=== PATIENT | male | born 1955 | race Caucasian/White ===

== ENCOUNTER 2019-08-11 08:32 | Emergency (ER) | payer OTHER, MEDICARE ==
[~2019-08-11] VITALS: Ht 167.6 cm; Wt 79.4 kg
[~2019-08-11 08:32] MED LIST: ASPI81CH PO; ATOR40TA PO; Aspirin EC81 MG PO; Bactrim Ds Tab1 EACH PO; CARV6.25 PO; CLOP75 PO; Coreg12.5 MG PO; HYDCHL25 PO; LISI20 PO; METF500C PO; Metformin HCl850 MG PO; ZESTRIL40 MG PO
[2019-08-11 09:19] LABS: BASOPHILS ABSOLUTE AUTO 0.08 K/mm3 (0.00-0.23); BASOPHILS PERCENT AUTO 1 % (0-2); EOSINOPHILS ABSOLUTE AUTO 0.29 K/mm3 (0.00-0.68); EOSINOPHILS PERCENT AUTO 3 % (0-6); Hematocrit 44.3 % (37.0-53.0); Hemoglobin 15.1 g/dL (13.5-17.5); IMMATURE GRAN ABSOLUTE AUTO 0.04 K/mm3 (0.00-0.10); IMMATURE GRAN PERCENT AUTO 0 % (0-1); LYMPHOCYTES ABSOLUTE AUTO 2.72 K/mm3 (0.84-5.20); LYMPHOCYTES PERCENT AUTO 26 % (21-46); MONOCYTES ABSOLUTE AUTO 0.89 K/mm3 (0.16-1.47); MONOCYTES PERCENT AUTO 9 % (4-13); Mean Corpuscular HGB 32.1 pg (26.0-34.0); Mean Corpuscular HGB Conc 34.1 g/dL (31.5-36.5); Mean Corpuscular Volume 94 fL (80-100); Mean Platelet Volume 8.2 fL (9.1-12.4); NEUTROPHILS ABSOLUTE AUTO 6.46 K/mm3 (1.96-9.15); NEUTROPHILS PERCENT AUTO 62 % (41-73); Platelet Count 354 K/mm3 (150-400); RDW Coefficient Variation 11.4 % (11.7-14.2); RDW Standard Deviation 39.5 fL (35.1-46.3); Red Blood Cell Count 4.71 M/mm3 (4.30-5.90); White Blood Cell Count 10.48 K/mm3 (4.00-11.30)
[2019-08-11 09:36] LABS: Alanine Aminotransfer (ALT/SGP 36 U/L (12-78); Albumin/Globulin Ratio 0.6 (0.8-1.8); Alk Phos 116 U/L (50-136); Anion Gap 7 mmol/L (6-16); Aspartate Aminotrans (AST/SGOT 20 U/L (12-37); Bilirubin, Total 0.4 mg/dL (0.1-1.0); Blood Urea Nitrogen 12 mg/dL (8-24); Bun/Creatinine Ratio 15.4 (12.0-20.0); CO2, Blood 28 mmol/L (21-32); Chloride, Blood 101 mmol/L (98-108); Creatinine, Blood 0.78 mg/dL (0.60-1.20); Globulin, Blood 5.1 g/dL (2.2-4.0); Glomerular Filtration Rate >60 (60-); Glucose, Blood 169 mg/dL (70-99); Sodium, Blood 136 mmol/L (136-145); Total Protein, Blood 8.1 g/dL (6.4-8.2)
[2019-08-11 09:37] LABS: Troponin I <0.015 ng/mL (0.000-0.040)
[2019-08-11] MEDS ORDERED: Acetaminophen-1 EAC1 PO (10:34)
== END 2019-08-11 10:54 | disposition home or self-care (01) ==
LOC: ER 08:32
PROVIDERS: Emergency Medicine
DX: R07.89 Other chest pain (principal); I25.2 Old myocardial infarction; E11.9 Type 2 diabetes mellitus without complications; I10 Essential (primary) hypertension; Z79.899 Other long term (current) drug therapy; Z79.01 Long term (current) use of anticoagulants; Z79.84 Long term (current) use of oral hypoglycemic drugs
CPT/HCPCS: 36415; 71046; 80053; 83690; 84484; 85025; 93005; 93010; 96374; 96375; 99284-25; J1885; J2405; J3010

== ENCOUNTER 2020-11-02 21:29 | Observation (INO) | payer OTHER, MEDICARE ==
[~2020-11-02] VITALS: Ht 182.9 cm; Wt 88.2 kg
[~2020-11-02 21:29] MED LIST changes: +Acetaminophen-1 EAC1 PO
[2020-11-02 21:53] LABS: BASOPHILS ABSOLUTE AUTO 0.09 K/mm3 (0.00-0.23); BASOPHILS PERCENT AUTO 1 % (0-2); EOSINOPHILS ABSOLUTE AUTO 0.25 K/mm3 (0.00-0.68); EOSINOPHILS PERCENT AUTO 3 % (0-6); Hematocrit 51.3 % (37.0-53.0); Hemoglobin 17.8 g/dL (13.5-17.5); IMMATURE GRAN ABSOLUTE AUTO 0.03 K/mm3 (0.00-0.10); IMMATURE GRAN PERCENT AUTO 0 % (0-1); LYMPHOCYTES ABSOLUTE AUTO 2.93 K/mm3 (0.84-5.20); LYMPHOCYTES PERCENT AUTO 32 % (21-46); MONOCYTES ABSOLUTE AUTO 0.91 K/mm3 (0.16-1.47); MONOCYTES PERCENT AUTO 10 % (4-13); Mean Corpuscular HGB Conc 34.7 g/dL (31.5-36.5); Mean Corpuscular Volume 89 fL (80-100); Mean Platelet Volume 9.8 fL (9.1-12.4); NEUTROPHILS ABSOLUTE AUTO 4.83 K/mm3 (1.96-9.15); NEUTROPHILS PERCENT AUTO 53 % (41-73); Platelet Count 233 K/mm3 (150-400); RDW Coefficient Variation 12.2 % (11.7-14.2); RDW Standard Deviation 40.4 fL (35.1-46.3); Red Blood Cell Count 5.74 M/mm3 (4.30-5.90); White Blood Cell Count 9.04 K/mm3 (4.00-11.30)
[2020-11-02 22:12] LABS: Alanine Aminotransfer (ALT/SGP 17 U/L (12-78); Albumin, Blood 2.8 g/dL (3.4-5.0); Albumin/Globulin Ratio 0.5 (0.8-1.8); Alk Phos 174 U/L (50-136); Anion Gap 3 mmol/L (6-16); Aspartate Aminotrans (AST/SGOT 13 U/L (12-37); Bilirubin, Total 0.3 mg/dL (0.1-1.0); Blood Urea Nitrogen 11 mg/dL (8-24); Bun/Creatinine Ratio 11.2 (12.0-20.0); CO2, Blood 30 mmol/L (21-32); Calcium, Blood 9.3 mg/dL (8.5-10.1); Chloride, Blood 103 mmol/L (98-108); Creatinine, Blood 0.98 mg/dL (0.60-1.20); Globulin, Blood 5.2 g/dL (2.2-4.0); Glomerular Filtration Rate >60 (60-); Glucose, Blood 384 mg/dL (70-99); Potassium, Blood 4.5 mmol/L (3.5-5.5); Sodium, Blood 136 mmol/L (136-145); Troponin I 0.071 ng/mL (0.000-0.040)
[2020-11-02] MEDS ORDERED: METF500 PO (22:46)
[2020-11-02] MEDS ORDERED: DULO60 PO (22:46)
[2020-11-02] MEDS ORDERED: PREG150 PO (22:47)
[2020-11-03 06:04] LABS: BASOPHILS ABSOLUTE AUTO 0.11 K/mm3 (0.00-0.23); BASOPHILS PERCENT AUTO 1 % (0-2); EOSINOPHILS ABSOLUTE AUTO 0.36 K/mm3 (0.00-0.68); EOSINOPHILS PERCENT AUTO 4 % (0-6); Hematocrit 46.5 % (37.0-53.0); Hemoglobin 16.1 g/dL (13.5-17.5); IMMATURE GRAN ABSOLUTE AUTO 0.04 K/mm3 (0.00-0.10); IMMATURE GRAN PERCENT AUTO 0 % (0-1); LYMPHOCYTES ABSOLUTE AUTO 3.27 K/mm3 (0.84-5.20); LYMPHOCYTES PERCENT AUTO 32 % (21-46); MONOCYTES ABSOLUTE AUTO 1.17 K/mm3 (0.16-1.47); MONOCYTES PERCENT AUTO 12 % (4-13); Mean Corpuscular HGB Conc 34.6 g/dL (31.5-36.5); Mean Corpuscular Volume 89 fL (80-100); Mean Platelet Volume 10.2 fL (9.1-12.4); NEUTROPHILS PERCENT AUTO 51 % (41-73); Platelet Count 203 K/mm3 (150-400); RDW Coefficient Variation 12.2 % (11.7-14.2); RDW Standard Deviation 40.3 fL (35.1-46.3); White Blood Cell Count 10.15 K/mm3 (4.00-11.30)
[2020-11-03 06:25] LABS: CHOL/HDL RATIO 5.3; Cholesterol 164 mg/dL (50-200); HDL Cholesterol 31 mg/dL (>39); LDL/HDL RATIO 3.1; Low Density Lipoprotein Chol 97 mg/dL (0-110); Triglycerides 178 mg/dL (30-160); Very Low Density Lipoprot Chol 35 mg/dL (6-32)
[2020-11-03 06:28] LABS: Anion Gap 6 mmol/L (6-16); Blood Urea Nitrogen 11 mg/dL (8-24); Bun/Creatinine Ratio 13.5 (12.0-20.0); CO2, Blood 25 mmol/L (21-32); Calcium, Blood 8.6 mg/dL (8.5-10.1); Chloride, Blood 107 mmol/L (98-108); Creatinine, Blood 0.82 mg/dL (0.60-1.20); Glomerular Filtration Rate >60 (60-); Glucose, Blood 262 mg/dL (70-99); Potassium, Blood 4.1 mmol/L (3.5-5.5); Sodium, Blood 138 mmol/L (136-145); Troponin I 0.057 ng/mL (0.000-0.040)
--- NOTE | 2020-11-03 07:14 | NUR ---
SHIFT SUMMARY PATIENT ALERT AND ORIENTED. HAD NO COMPLAINTS OF CHEST PAIN OR SHORTNESS OF BREATH. ABLE TO SELF AMBULATE SAFELY IN HIS ROOM. HAS BEEN SLEEPING WELL SINCE ADMISSION TO THE MEDICAL UNIT. IV PATENT AND FLUSHED. BALL LIGHT WITHIN REACH. REPORT GIVEN TO ANGEL BROCK.
--- NOTE | 2020-11-03 11:16 | NUR ---
Echocardiogram performed by Ankita Del Real under my supervision.
--- NOTE | 2020-11-03 17:11 | NUR ---
SUMMARY PT SITTING UP AT THE CHAIR AT THE BEDSIDE, PT HAD A ONE DAY STRESS TEST PROTOCOL TODAY, PT INDEPENDENT IN THE ROOM, DENIES ANY CHEST PAIN T/O THE DAY, PT HOPEFUL TO BE DC'D TODAY, WAITING FOR STRESS TEST RESULTS, VSS, WILL CONT TO MONITOR
[2020-11-03] MEDS ORDERED: ASPI81CH PO (20:26)
[2020-11-03] MEDS ORDERED: ATOR20 PO (20:26)
[2020-11-03] MEDS ORDERED: Metoprolol Tart25 MG (20:27)
--- NOTE | 2020-11-03 20:46 | NUR ---
DISCHARGE NOTE: PATIENT DISCHARGED TO HOME AT 2034 AFTER RECEIVING DISCHARGE INSTRUCTIONS. PATIENT IS A OK CLIENT AND WILL NOT BE ABLE TO PROPERTY ASSESSMENT MONITOR NEW RX'S FOR LIPITOR, METOPROLOL AND ASPIRIN UNTIL FRIDAY. PATIENT BELIEVES HE STILL HAS METOPROLOL LEFT AT HOME FROM [facility] ("within a year ago") WHICH HE WILL BE TAKING OVER THE WEEKEND. PATIENT REFUSED BRUSH CLEANER ASSESSMENT WELL HEPARIN AND BOWEL CARE MEDS WHICH WERE ALL DUE AT . REFUSED WHEELCHAIR TRANSPORT DOWN TO [facility] "HE NEEDED TO WALK". PATIENT TO FOLLOW UP WITH HIS PCP AT THE OK AND OBTAIN REFERRAL TO DIRECTOR BROADCAST HE NEEDS FOLLOW UP AND DOES NOT HAVE ONE. TELE DC'D AND IV DC'D. AT TIME OF DISCHARGE
--- NOTE | 2020-11-03 22:10 | NUR ---
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
== END 2020-11-03 20:40 | disposition home or self-care (01) ==
LOC: ER 21:29 → MEDS 21:30 → ER 11-03 00:37 → MEDS 11-03 00:37
PROVIDERS: Physician Assistant; ADMIT Internal Medicine
DX: R07.9 Chest pain, unspecified (principal); I11.0 Hypertensive heart disease with heart failure; I50.22 Chronic systolic (congestive) heart failure; E11.40 Type 2 diabetes mellitus with diabetic neuropathy, unspecified; E78.5 Hyperlipidemia, unspecified; I25.10 Atherosclerotic heart disease of native coronary artery without angina pectoris; Z95.5 Presence of coronary angioplasty implant and graft; I34.0 Nonrheumatic mitral (valve) insufficiency; Z88.8 Allergy status to other drugs, medicaments and biological substances; Z79.84 Long term (current) use of oral hypoglycemic drugs; Z79.899 Other long term (current) drug therapy
CPT/HCPCS: 36415; 71046; 78452; 80048; 80053; 80061; 82947; 84484; 85025; 93005; 93010; 93017; 93306; 96372; 99285-25; A9270; A9500; G0378; J0280; J1644; J1815; J2785

== ENCOUNTER 2021-01-09 15:50 | Inpatient (IN) | payer OTHER, MEDICARE ==
[~2021-01-09] VITALS: Ht 177.8 cm; Wt 90.1 kg
[~2021-01-09 15:50] MED LIST changes: +ATOR20 PO; +DULO60 PO; +METF500 PO; +Metoprolol Tart25 MG; +PREG150 PO
[2021-01-09 16:15] LABS: BASOPHILS ABSOLUTE AUTO 0.12 K/mm3 (0.00-0.23); BASOPHILS PERCENT AUTO 1 % (0-2); EOSINOPHILS ABSOLUTE AUTO 0.28 K/mm3 (0.00-0.68); EOSINOPHILS PERCENT AUTO 2 % (0-6); Hematocrit 44.1 % (37.0-53.0); Hemoglobin 15.2 g/dL (13.5-17.5); IMMATURE GRAN PERCENT AUTO 1 % (0-1); LYMPHOCYTES ABSOLUTE AUTO 5.18 K/mm3 (0.84-5.20); LYMPHOCYTES PERCENT AUTO 37 % (21-46); MONOCYTES ABSOLUTE AUTO 1.33 K/mm3 (0.16-1.47); MONOCYTES PERCENT AUTO 10 % (4-13); Mean Corpuscular HGB 31.6 pg (26.0-34.0); Mean Corpuscular HGB Conc 34.5 g/dL (31.5-36.5); Mean Corpuscular Volume 92 fL (80-100); Mean Platelet Volume 11.1 fL (9.1-12.4); NEUTROPHILS ABSOLUTE AUTO 6.85 K/mm3 (1.96-9.15); NEUTROPHILS PERCENT AUTO 49 % (41-73); Platelet Count 246 K/mm3 (150-400); RDW Coefficient Variation 13.5 % (11.7-14.2); RDW Standard Deviation 45.3 fL (35.1-46.3); Red Blood Cell Count 4.81 M/mm3 (4.30-5.90); White Blood Cell Count 13.86 K/mm3 (4.00-11.30)
[2021-01-09 16:52] LABS: Alanine Aminotransfer (ALT/SGP 30 U/L (12-78); Albumin/Globulin Ratio 0.6 (0.8-1.8); Alk Phos 134 U/L (50-136); Anion Gap 5 mmol/L (6-16); Aspartate Aminotrans (AST/SGOT 34 U/L (12-37); Blood Urea Nitrogen 10 mg/dL (8-24); Bun/Creatinine Ratio 11.4 (12.0-20.0); CO2, Blood 24 mmol/L (21-32); Calcium, Blood 8.9 mg/dL (8.5-10.1); Chloride, Blood 109 mmol/L (98-108); Creatinine, Blood 0.88 mg/dL (0.60-1.20); Globulin, Blood 5.1 g/dL (2.2-4.0); Glomerular Filtration Rate >60 (60-); Glucose, Blood 193 mg/dL (70-99); Potassium, Blood 4.2 mmol/L (3.5-5.5); Sodium, Blood 138 mmol/L (136-145); Total Protein, Blood 8.1 g/dL (6.4-8.2); Troponin I <0.015 ng/mL (0.000-0.040)
[2021-01-09] MEDS ORDERED: IPRAT-ALBUT 0.5-3 ML NEB (18:11)
[2021-01-09] MEDS ORDERED: ALBU2.5V5 INH (18:11)
[2021-01-09] MEDS ORDERED: GLUCOPHAGE1000 M1 PO (18:12)
[2021-01-09] MEDS ORDERED: CYMBALTA60 M1 PO (18:12)
[2021-01-09] MEDS ORDERED: PREG150 PO (18:12)
[2021-01-10 04:45] LABS: BASOPHILS PERCENT AUTO 1 % (0-2); EOSINOPHILS ABSOLUTE AUTO 0.15 K/mm3 (0.00-0.68); EOSINOPHILS PERCENT AUTO 1 % (0-6); Hemoglobin 14.7 g/dL (13.5-17.5); IMMATURE GRAN ABSOLUTE AUTO 0.05 K/mm3 (0.00-0.10); IMMATURE GRAN PERCENT AUTO 1 % (0-1); LYMPHOCYTES PERCENT AUTO 24 % (21-46); MONOCYTES ABSOLUTE AUTO 0.98 K/mm3 (0.16-1.47); MONOCYTES PERCENT AUTO 9 % (4-13); Mean Corpuscular HGB 31.8 pg (26.0-34.0); Mean Corpuscular Volume 91 fL (80-100); Mean Platelet Volume 10.1 fL (9.1-12.4); NEUTROPHILS ABSOLUTE AUTO 6.64 K/mm3 (1.96-9.15); NEUTROPHILS PERCENT AUTO 64 % (41-73); Platelet Count 223 K/mm3 (150-400); RDW Coefficient Variation 13.6 % (11.7-14.2); RDW Standard Deviation 44.7 fL (35.1-46.3); Red Blood Cell Count 4.62 M/mm3 (4.30-5.90); White Blood Cell Count 10.42 K/mm3 (4.00-11.30)
[2021-01-10 05:07] LABS: Alanine Aminotransfer (ALT/SGP 30 U/L (12-78); Albumin, Blood 2.8 g/dL (3.4-5.0); Albumin/Globulin Ratio 0.6 (0.8-1.8); Alk Phos 121 U/L (50-136); Anion Gap 2 mmol/L (6-16); Aspartate Aminotrans (AST/SGOT 19 U/L (12-37); Bilirubin, Total 0.9 mg/dL (0.1-1.0); Blood Urea Nitrogen 14 mg/dL (8-24); Bun/Creatinine Ratio 14.1 (12.0-20.0); CO2, Blood 29 mmol/L (21-32); Calcium, Blood 8.8 mg/dL (8.5-10.1); Chloride, Blood 106 mmol/L (98-108); Creatinine, Blood 0.99 mg/dL (0.60-1.20); Globulin, Blood 4.5 g/dL (2.2-4.0); Glomerular Filtration Rate >60 (60-); Glucose, Blood 159 mg/dL (70-99); Potassium, Blood 3.9 mmol/L (3.5-5.5); Sodium, Blood 137 mmol/L (136-145); Total Protein, Blood 7.3 g/dL (6.4-8.2)
[2021-01-11 05:07] LABS: Albumin, Blood 2.9 g/dL (3.4-5.0); Anion Gap 5 mmol/L (6-16); Blood Urea Nitrogen 23 mg/dL (8-24); Bun/Creatinine Ratio 21.3 (12.0-20.0); CO2, Blood 29 mmol/L (21-32); Calcium, Blood 8.9 mg/dL (8.5-10.1); Chloride, Blood 103 mmol/L (98-108); Creatinine, Blood 1.08 mg/dL (0.60-1.20); Glomerular Filtration Rate >60 (60-); Glucose, Blood 207 mg/dL (70-99); Phosphorus, Blood 3.2 mg/dL (2.5-4.9); Potassium, Blood 3.9 mmol/L (3.5-5.5); Sodium, Blood 137 mmol/L (136-145)
[2021-01-11] MEDS ORDERED: ASPI81CH PO (11:21)
[2021-01-11] MEDS ORDERED: ATOR20 PO (11:22)
[2021-01-11] MEDS ORDERED: LOSA25 PO (11:24)
[2021-01-11] MEDS ORDERED: MELATONIN5 M1 PO (11:25)
[2021-01-11] MEDS ORDERED: METO25 PO (11:26)
[2021-01-11] MEDS ORDERED: Nicoderm Cq1 EAC1 TOP (11:26)
[2021-01-11] MEDS ORDERED: FURO40 PO (11:29)
== END 2021-01-11 12:46 | disposition home or self-care (01) | DRG 291 ==
LOC: ER 15:50 → MEDS 17:34
PROVIDERS: Emergency Medicine; Family Medicine; ADMIT Internal Medicine
DX: I11.0 Hypertensive heart disease with heart failure (principal); J96.01 Acute respiratory failure with hypoxia; I47.1 Supraventricular tachycardia; I50.23 Acute on chronic systolic (congestive) heart failure; I25.2 Old myocardial infarction; Z95.5 Presence of coronary angioplasty implant and graft; Z20.822 Contact with and (suspected) exposure to COVID-19; Z79.82 Long term (current) use of aspirin; Z79.84 Long term (current) use of oral hypoglycemic drugs; E11.42 Type 2 diabetes mellitus with diabetic polyneuropathy; I25.10 Atherosclerotic heart disease of native coronary artery without angina pectoris; F17.290 Nicotine dependence, other tobacco product, uncomplicated
CPT/HCPCS: 36415; 71045; 80053; 80069; 82947; 83605; 83735; 83880; 84132; 84145; 84443; 84484; 85025; 87040; 93005; 93010; 94640; 94760; 96365; 96375; 99285-25; A9270; J0456; J0696; J1650; J1815; J1940; J3475; J7050

== ENCOUNTER 2021-04-09 21:23 | Observation (INO) | payer OTHER ==
[~2021-04-09] VITALS: Ht 182.9 cm; Wt 88.0 kg
[~2021-04-09 21:23] MED LIST changes: +ALBU2.5V5 INH; +CYMBALTA60 M1 PO; +FURO40 PO; +GLUCOPHAGE1000 M1 PO; +IPRAT-ALBUT 0.5-3 ML NEB; +LOSA25 PO; +MELATONIN5 M1 PO; +METO25 PO; +Nicoderm Cq1 EAC1 TOP
[2021-04-09 21:47] LABS: BASOPHILS ABSOLUTE AUTO 0.14 K/mm3 (0.00-0.23); BASOPHILS PERCENT AUTO 1 % (0-2); EOSINOPHILS ABSOLUTE AUTO 0.33 K/mm3 (0.00-0.68); EOSINOPHILS PERCENT AUTO 2 % (0-6); Hematocrit 45.2 % (37.0-53.0); Hemoglobin 15.7 g/dL (13.5-17.5); IMMATURE GRAN ABSOLUTE AUTO 0.06 K/mm3 (0.00-0.10); IMMATURE GRAN PERCENT AUTO 0 % (0-1); LYMPHOCYTES ABSOLUTE AUTO 3.51 K/mm3 (0.84-5.20); LYMPHOCYTES PERCENT AUTO 26 % (21-46); MONOCYTES ABSOLUTE AUTO 1.18 K/mm3 (0.16-1.47); MONOCYTES PERCENT AUTO 9 % (4-13); Mean Corpuscular HGB 31.6 pg (26.0-34.0); Mean Corpuscular HGB Conc 34.7 g/dL (31.5-36.5); Mean Corpuscular Volume 91 fL (80-100); Mean Platelet Volume 10.3 fL (9.1-12.4); NEUTROPHILS ABSOLUTE AUTO 8.32 K/mm3 (1.96-9.15); NEUTROPHILS PERCENT AUTO 62 % (41-73); Platelet Count 225 K/mm3 (150-400); RDW Coefficient Variation 12.8 % (11.7-14.2); RDW Standard Deviation 42.4 fL (35.1-46.3); Red Blood Cell Count 4.97 M/mm3 (4.30-5.90); White Blood Cell Count 13.54 K/mm3 (4.00-11.30)
[2021-04-09 22:08] LABS: Alanine Aminotransfer (ALT/SGP 27 U/L (12-78); Albumin, Blood 3.1 g/dL (3.4-5.0); Albumin/Globulin Ratio 0.6 (0.8-1.8); Alk Phos 147 U/L (50-136); Anion Gap 5 mmol/L (6-16); Aspartate Aminotrans (AST/SGOT 24 U/L (12-37); Bilirubin, Total 0.6 mg/dL (0.1-1.0); Blood Urea Nitrogen 14 mg/dL (8-24); CO2, Blood 27 mmol/L (21-32); Calcium, Blood 8.6 mg/dL (8.5-10.1); Chloride, Blood 105 mmol/L (98-108); Globulin, Blood 5.1 g/dL (2.2-4.0); Glomerular Filtration Rate >60 (60-); Glucose, Blood 169 mg/dL (70-99); Magnesium, Blood 1.5 mg/dL (1.6-2.4); Potassium, Blood 4.3 mmol/L (3.5-5.5); Sodium, Blood 137 mmol/L (136-145); Total Protein, Blood 8.2 g/dL (6.4-8.2); Troponin I 0.065 ng/mL (0.000-0.040)
[2021-04-10 05:46] LABS: BASOPHILS PERCENT AUTO 1 % (0-2); EOSINOPHILS ABSOLUTE AUTO 0.22 K/mm3 (0.00-0.68); EOSINOPHILS PERCENT AUTO 2 % (0-6); Hematocrit 39.8 % (37.0-53.0); Hemoglobin 13.8 g/dL (13.5-17.5); IMMATURE GRAN ABSOLUTE AUTO 0.05 K/mm3 (0.00-0.10); IMMATURE GRAN PERCENT AUTO 1 % (0-1); LYMPHOCYTES ABSOLUTE AUTO 2.93 K/mm3 (0.84-5.20); LYMPHOCYTES PERCENT AUTO 29 % (21-46); MONOCYTES ABSOLUTE AUTO 0.95 K/mm3 (0.16-1.47); MONOCYTES PERCENT AUTO 9 % (4-13); Mean Corpuscular HGB 31.3 pg (26.0-34.0); Mean Corpuscular HGB Conc 34.7 g/dL (31.5-36.5); Mean Corpuscular Volume 90 fL (80-100); Mean Platelet Volume 11.9 fL (9.1-12.4); NEUTROPHILS ABSOLUTE AUTO 5.86 K/mm3 (1.96-9.15); NEUTROPHILS PERCENT AUTO 58 % (41-73); Platelet Count 193 K/mm3 (150-400); RDW Coefficient Variation 12.7 % (11.7-14.2); RDW Standard Deviation 42.2 fL (35.1-46.3); Red Blood Cell Count 4.41 M/mm3 (4.30-5.90); White Blood Cell Count 10.11 K/mm3 (4.00-11.30)
[2021-04-10 06:10] LABS: CPK Creatine Kinase 175 U/L (39-308)
[2021-04-10 06:12] LABS: Alanine Aminotransfer (ALT/SGP 20 U/L (12-78); Albumin, Blood 2.5 g/dL (3.4-5.0); Albumin/Globulin Ratio 0.6 (0.8-1.8); Alk Phos 120 U/L (50-136); Anion Gap 4 mmol/L (6-16); Aspartate Aminotrans (AST/SGOT 29 U/L (12-37); Bilirubin, Total 0.8 mg/dL (0.1-1.0); Blood Urea Nitrogen 13 mg/dL (8-24); Bun/Creatinine Ratio 14.8 (12.0-20.0); CO2, Blood 26 mmol/L (21-32); Calcium, Blood 8.8 mg/dL (8.5-10.1); Chloride, Blood 108 mmol/L (98-108); Creatinine, Blood 0.88 mg/dL (0.60-1.20); Globulin, Blood 4.4 g/dL (2.2-4.0); Glomerular Filtration Rate >60 (60-); Glucose, Blood 125 mg/dL (70-99); Potassium, Blood 4.3 mmol/L (3.5-5.5); Sodium, Blood 138 mmol/L (136-145); Total Protein, Blood 6.9 g/dL (6.4-8.2)
[2021-04-10] MEDS ORDERED: FURO40 PO (12:05)
[2021-04-10] MEDS ORDERED: POTA10T PO (12:05)
== END 2021-04-10 12:22 | disposition home or self-care (01) ==
LOC: ER 21:23 → ERHOLD 21:24
PROVIDERS: Physician Assistant; ADMIT Internal Medicine
DX: I11.0 Hypertensive heart disease with heart failure (principal); I50.43 Acute on chronic combined systolic (congestive) and diastolic (congestive) heart failure; I25.2 Old myocardial infarction; E11.40 Type 2 diabetes mellitus with diabetic neuropathy, unspecified; E78.5 Hyperlipidemia, unspecified; I25.10 Atherosclerotic heart disease of native coronary artery without angina pectoris; F17.290 Nicotine dependence, other tobacco product, uncomplicated; Z79.84 Long term (current) use of oral hypoglycemic drugs; Z79.82 Long term (current) use of aspirin; Z95.5 Presence of coronary angioplasty implant and graft; I34.0 Nonrheumatic mitral (valve) insufficiency; Z87.01 Personal history of pneumonia (recurrent); Z87.09 Personal history of other diseases of the respiratory system
CPT/HCPCS: 36415; 71045; 80053; 82550; 83735; 83880; 84484; 85025; 85379; 93005; 93010; 96365; 96367; 96372; 96375; 96376; 99285-25; A9270; G0378; J0696; J1650; J1940; J3475

== ENCOUNTER 2021-04-22 20:32 | Emergency (ER) | payer OTHER ==
[~2021-04-22] VITALS: Ht 182.9 cm; Wt 84.4 kg
[~2021-04-22 20:32] MED LIST changes: +POTA10T PO
[2021-04-22 21:27] LABS: BASOPHILS ABSOLUTE AUTO 0.09 K/mm3 (0.00-0.23); BASOPHILS PERCENT AUTO 1 % (0-2); EOSINOPHILS ABSOLUTE AUTO 0.24 K/mm3 (0.00-0.68); EOSINOPHILS PERCENT AUTO 3 % (0-6); Hematocrit 39.8 % (37.0-53.0); Hemoglobin 13.9 g/dL (13.5-17.5); IMMATURE GRAN ABSOLUTE AUTO 0.05 K/mm3 (0.00-0.10); IMMATURE GRAN PERCENT AUTO 1 % (0-1); LYMPHOCYTES PERCENT AUTO 31 % (21-46); MONOCYTES ABSOLUTE AUTO 0.87 K/mm3 (0.16-1.47); MONOCYTES PERCENT AUTO 10 % (4-13); Mean Corpuscular HGB 31.5 pg (26.0-34.0); Mean Corpuscular HGB Conc 34.9 g/dL (31.5-36.5); Mean Corpuscular Volume 90 fL (80-100); Mean Platelet Volume 10.8 fL (9.1-12.4); NEUTROPHILS ABSOLUTE AUTO 4.97 K/mm3 (1.96-9.15); NEUTROPHILS PERCENT AUTO 55 % (41-73); Platelet Count 250 K/mm3 (150-400); RDW Coefficient Variation 12.3 % (11.7-14.2); RDW Standard Deviation 40.6 fL (35.1-46.3); Red Blood Cell Count 4.41 M/mm3 (4.30-5.90); White Blood Cell Count 9.02 K/mm3 (4.00-11.30)
[2021-04-22 22:16] LABS: Alanine Aminotransfer (ALT/SGP 18 U/L (12-78); Albumin, Blood 2.6 g/dL (3.4-5.0); Albumin/Globulin Ratio 0.6 (0.8-1.8); Alk Phos 118 U/L (50-136); Anion Gap 5 mmol/L (6-16); Aspartate Aminotrans (AST/SGOT 13 U/L (12-37); Bilirubin, Total 0.3 mg/dL (0.1-1.0); Blood Urea Nitrogen 18 mg/dL (8-24); Bun/Creatinine Ratio 15.3 (12.0-20.0); CO2, Blood 28 mmol/L (21-32); Calcium, Blood 7.8 mg/dL (8.5-10.1); Chloride, Blood 104 mmol/L (98-108); Creatinine, Blood 1.18 mg/dL (0.60-1.20); Globulin, Blood 4.7 g/dL (2.2-4.0); Glomerular Filtration Rate >60 (60-); Glucose, Blood 221 mg/dL (70-99); Potassium, Blood 3.8 mmol/L (3.5-5.5); Sodium, Blood 137 mmol/L (136-145); Total Protein, Blood 7.3 g/dL (6.4-8.2)
[2021-04-22 22:56] LABS: SARS-Cov-2 (COVID-19) PCR, MMC NEGATIVE (NEGATIVE)
== END 2021-04-22 22:40 | disposition short-term general hospital (02) ==
LOC: ER 20:32
PROVIDERS: Physician Assistant
DX: S68.022A Partial traumatic metacarpophalangeal amputation of left thumb, initial encounter (principal); S68.127A Partial traumatic metacarpophalangeal amputation of left little finger, initial encounter; I11.0 Hypertensive heart disease with heart failure; I50.9 Heart failure, unspecified; I25.2 Old myocardial infarction; E11.9 Type 2 diabetes mellitus without complications; F17.200 Nicotine dependence, unspecified, uncomplicated; Z20.822 Contact with and (suspected) exposure to COVID-19; W27.0XXA Contact with workbench tool, initial encounter
CPT/HCPCS: 73130; 80053; 85025; 96365; 96375; 99285-25; J0690; J1170; J2270; J2405; U0004

== ENCOUNTER 2022-02-04 09:10 | Emergency (ER) | payer OTHER ==
[~2022-02-04] VITALS: Ht 182.9 cm; Wt 87.5 kg
[2022-02-04 09:58] LABS: Bun/Creatinine Ratio 10.8 (12.0-20.0); Creatinine, Blood 0.93 mg/dL (0.60-1.20); Potassium, Blood 3.8 mmol/L (3.5-5.5)
[2022-02-04] MEDS ORDERED: Doxycycline Mo100 M1 PO (11:13)
[2022-02-04 13:06] LABS: BASOPHILS ABSOLUTE AUTO 0.09 K/mm3 (0.00-0.23); BASOPHILS PERCENT AUTO 1 % (0-2); EOSINOPHILS ABSOLUTE AUTO 0.23 K/mm3 (0.00-0.68); EOSINOPHILS PERCENT AUTO 2 % (0-6); Hematocrit 33.9 % (37.0-53.0); Hemoglobin 11.2 g/dL (13.5-17.5); IMMATURE GRAN ABSOLUTE AUTO 0.06 K/mm3 (0.00-0.10); IMMATURE GRAN PERCENT AUTO 0 % (0-1); LYMPHOCYTES ABSOLUTE AUTO 2.33 K/mm3 (0.84-5.20); LYMPHOCYTES PERCENT AUTO 17 % (21-46); MONOCYTES ABSOLUTE AUTO 1.25 K/mm3 (0.16-1.47); MONOCYTES PERCENT AUTO 9 % (4-13); Mean Corpuscular HGB 29.9 pg (26.0-34.0); Mean Corpuscular Volume 90 fL (80-100); Mean Platelet Volume 10.4 fL (9.1-12.4); NEUTROPHILS ABSOLUTE AUTO 9.44 K/mm3 (1.96-9.15); NEUTROPHILS PERCENT AUTO 71 % (41-73); Platelet Count 284 K/mm3 (150-400); RDW Coefficient Variation 12.8 % (11.7-14.2); RDW Standard Deviation 42.4 fL (35.1-46.3); Red Blood Cell Count 3.75 M/mm3 (4.30-5.90)
== END 2022-02-04 11:51 | disposition home or self-care (01) ==
LOC: ER 09:10
PROVIDERS: Emergency Medicine
DX: L02.213 Cutaneous abscess of chest wall (principal); I11.0 Hypertensive heart disease with heart failure; I50.9 Heart failure, unspecified; I25.2 Old myocardial infarction; E11.9 Type 2 diabetes mellitus without complications; F17.200 Nicotine dependence, unspecified, uncomplicated; Z79.84 Long term (current) use of oral hypoglycemic drugs; Z95.1 Presence of aortocoronary bypass graft; Z88.8 Allergy status to other drugs, medicaments and biological substances
CPT/HCPCS: 71045; 80048; 82947; 85025

== ENCOUNTER 2022-03-23 13:47 | Emergency (ER) | payer OTHER ==
[~2022-03-23] VITALS: Ht 182.9 cm; Wt 83.9 kg
[~2022-03-23 13:47] MED LIST changes: +Doxycycline Mo100 M1 PO
[2022-03-23 14:07] LABS: BASOPHILS ABSOLUTE AUTO 0.09 K/mm3 (0.00-0.23); BASOPHILS PERCENT AUTO 1 % (0-2); EOSINOPHILS ABSOLUTE AUTO 0.51 K/mm3 (0.00-0.68); EOSINOPHILS PERCENT AUTO 7 % (0-6); Hematocrit 42.4 % (37.0-53.0); Hemoglobin 13.6 g/dL (13.5-17.5); IMMATURE GRAN ABSOLUTE AUTO 0.03 K/mm3 (0.00-0.10); IMMATURE GRAN PERCENT AUTO 0 % (0-1); LYMPHOCYTES ABSOLUTE AUTO 2.09 K/mm3 (0.84-5.20); LYMPHOCYTES PERCENT AUTO 29 % (21-46); MONOCYTES ABSOLUTE AUTO 0.73 K/mm3 (0.16-1.47); MONOCYTES PERCENT AUTO 10 % (4-13); Mean Corpuscular HGB 27.9 pg (26.0-34.0); Mean Corpuscular HGB Conc 32.1 g/dL (31.5-36.5); Mean Corpuscular Volume 87 fL (80-100); NEUTROPHILS ABSOLUTE AUTO 3.76 K/mm3 (1.96-9.15); NEUTROPHILS PERCENT AUTO 52 % (41-73); Platelet Count 264 K/mm3 (150-400); RDW Coefficient Variation 15.2 % (11.7-14.2); RDW Standard Deviation 48.7 fL (35.1-46.3); Red Blood Cell Count 4.87 M/mm3 (4.30-5.90); White Blood Cell Count 7.21 K/mm3 (4.00-11.30)
[2022-03-23 14:25] LABS: Albumin, Blood 2.9 g/dL (3.4-5.0); Albumin/Globulin Ratio 0.5 (0.8-1.8); Bilirubin, Total 0.5 mg/dL (0.1-1.0); Bun/Creatinine Ratio 18.5 (12.0-20.0); Calcium, Blood 8.7 mg/dL (8.5-10.1); Creatinine, Blood 0.81 mg/dL (0.60-1.20); Globulin, Blood 5.9 g/dL (2.2-4.0); Magnesium, Blood 1.4 mg/dL (1.6-2.4); Potassium, Blood 5.2 mmol/L (3.5-5.5); Total Protein, Blood 8.8 g/dL (6.4-8.2)
[2022-03-23 19:10] LABS: Adenovirus F 40/41 Not Detected (NOT DETECT); Astrovirus Not Detected (NOT DETECT); Campylobacter Sp Not Detected (NOT DETECT); Cryptosporidium Not Detected (NOT DETECT); Cyclospora Cayetanensis Not Detected (NOT DETECT); E. Coli O157 Not Detected (NOT DETECT); Entamoeba Histolytica Not Detected (NOT DETECT); Enteroaggregative E. coli-EAEC Not Detected (NOT DETECT); Enteropathogenic E. coli-EPEC Detected (NOT DETECT); Enterotoxigenic E. coli-ETEC Not Detected (NOT DETECT); Giardia Lamblia Not Detected (NOT DETECT); Norovirus GI/GII Not Detected (NOT DETECT); Plesiomonas Shigelloides Not Detected (NOT DETECT); Rotavirus A Not Detected (NOT DETECT); Salmonella Sp Not Detected (NOT DETECT); Sapovirus Detected (NOT DETECT); Shiga Toxin-prod E. coli-STEC Not Detected (NOT DETECT); Shigella/Enteroin E. coli-EIEC Not Detected (NOT DETECT); Vibrio Cholerae Not Detected (NOT DETECT); Vibrio Sp Not Detected (NOT DETECT); Yersinia Enterocolitica Not Detected (NOT DETECT)
[2022-03-23] MEDS ORDERED: PROBIOTIC1 EA13 PO (20:29)
[2022-03-23] MEDS ORDERED: LOPE2C PO (20:29)
== END 2022-03-23 20:41 | disposition home or self-care (01) ==
LOC: ER 13:47
PROVIDERS: Physician Assistant
DX: K52.1 Toxic gastroenteritis and colitis (principal); T36.95XA Adverse effect of unspecified systemic antibiotic, initial encounter; E86.1 Hypovolemia; E83.42 Hypomagnesemia; E11.9 Type 2 diabetes mellitus without complications; I11.0 Hypertensive heart disease with heart failure; I50.9 Heart failure, unspecified; F17.200 Nicotine dependence, unspecified, uncomplicated; I25.2 Old myocardial infarction; Z88.8 Allergy status to other drugs, medicaments and biological substances; Z79.84 Long term (current) use of oral hypoglycemic drugs; Z79.82 Long term (current) use of aspirin; Z79.899 Other long term (current) drug therapy; Y92.9 Unspecified place or not applicable; Z95.1 Presence of aortocoronary bypass graft
CPT/HCPCS: 80053; 83735; 85025; 87507; A9270; J3475; J7030

== ENCOUNTER 2022-07-19 19:49 | Inpatient (IN) | payer OTHER ==
[~2022-07-19] VITALS: Ht 185.4 cm; Wt 87.8 kg
[~2022-07-19 19:49] MED LIST changes: +ALBU90OI INH; +CARV3.125 PO; +CEPH500 PO; +LOPE2C PO; +Lisinopril2.5 MG PO; +MELA3 PO; +MUPIROCIN110 TOP; +NITR.4SL SL; +PROBIOTIC1 EA13 PO; +VISBIOME 112.51 EACH PO
[2022-07-19 21:37] LABS: BASOPHILS ABSOLUTE AUTO 0.02 K/mm3 (0.00-0.23); BASOPHILS PERCENT AUTO 0 % (0-2); EOSINOPHILS PERCENT AUTO 0 % (0-6); Hematocrit 39.3 % (37.0-53.0); Hemoglobin 13.2 g/dL (13.5-17.5); IMMATURE GRAN ABSOLUTE AUTO 0.07 K/mm3 (0.00-0.10); IMMATURE GRAN PERCENT AUTO 1 % (0-1); LYMPHOCYTES ABSOLUTE AUTO 2.12 K/mm3 (0.84-5.20); LYMPHOCYTES PERCENT AUTO 23 % (21-46); MONOCYTES ABSOLUTE AUTO 0.87 K/mm3 (0.16-1.47); MONOCYTES PERCENT AUTO 9 % (4-13); Mean Corpuscular HGB 30.2 pg (26.0-34.0); Mean Corpuscular HGB Conc 33.6 g/dL (31.5-36.5); Mean Corpuscular Volume 90 fL (80-100); Mean Platelet Volume 10.6 fL (9.1-12.4); NEUTROPHILS ABSOLUTE AUTO 6.21 K/mm3 (1.96-9.15); NEUTROPHILS PERCENT AUTO 67 % (41-73); Platelet Count 168 K/mm3 (150-400); RDW Coefficient Variation 13.5 % (11.7-14.2); RDW Standard Deviation 44.5 fL (35.1-46.3); Red Blood Cell Count 4.37 M/mm3 (4.30-5.90); White Blood Cell Count 9.29 K/mm3 (4.00-11.30)
[2022-07-20 00:31] LABS: Albumin, Blood 2.6 g/dL (3.4-5.0); Albumin/Globulin Ratio 0.5 (0.8-1.8); Bilirubin, Total 0.4 mg/dL (0.1-1.0); Bun/Creatinine Ratio 13.8 (12.0-20.0); Creatinine, Blood 8.75 mg/dL (0.60-1.20); Globulin, Blood 5.4 g/dL (2.2-4.0)
[2022-07-20 01:01] LABS: Source, Urine Clean Catch
[2022-07-20 01:03] LABS: Blood, Urine 1+ (Neg); Glucose Qualitative, Urine 2+ (Neg); Ketones, Urine 1+ (Neg); Leukocyte Esterase, Urine 1+ (Neg); Nitrite, Urine Pos (Neg); Protein, Urine 4+ (Neg); Urobilinogen, Urine NORM (Normal)
[2022-07-20 01:09] LABS: Influenza B, PCR NEGATIVE (NEGATIVE); Resp Syncytial Virus, PCR NEGATIVE (NEGATIVE); SARS-Cov-2 (COVID-19) PCR, MMC NEGATIVE (NEGATIVE)
[2022-07-20 02:22] LABS: Influenza A, PCR POSITIVE (NEGATIVE)
[2022-07-20 02:24] LABS: Appearance, Urine Clear (Clear); Bilirubin, Urine 1+ (Neg); Color, Urine Yellow (P-Yellow)
[2022-07-20 02:25] LABS: Bacteria Few /hpf; Red Blood Cells, Urine 0-2 /hpf (0-2); Squamous Epithelial Cells Few /hpf (Few); White Blood Cells, Urine 0-2 /hpf (0-5)
[2022-07-20 02:36] LABS: Bun/Creatinine Ratio 13.8 (12.0-20.0); Calcium, Blood 8.2 mg/dL (8.5-10.1); Creatinine, Blood 8.93 mg/dL (0.60-1.20); Potassium, Blood 6.9 mmol/L (3.5-5.5)
[2022-07-20 07:09] LABS: Magnesium, Blood 1.6 mg/dL (1.6-2.4)
[2022-07-20 07:35] LABS: Bun/Creatinine Ratio 13.4 (12.0-20.0); Creatinine, Blood 9.12 mg/dL (0.60-1.20); Potassium, Blood 5.9 mmol/L (3.5-5.5)
[2022-07-20 11:42] LABS: Albumin, Blood 2.3 g/dL (3.4-5.0); Anion Gap 35 mmol/L (6-16); Blood Urea Nitrogen 124 mg/dL (8-24); Bun/Creatinine Ratio 13.7 (12.0-20.0); CO2, Blood 6 mmol/L (21-32); Calcium, Blood 7.8 mg/dL (8.5-10.1); Chloride, Blood 96 mmol/L (98-108); Creatinine, Blood 9.03 mg/dL (0.60-1.20); Glomerular Filtration Rate 6 (60-); Glucose, Blood 75 mg/dL (70-99); Phosphorus, Blood 9.9 mg/dL (2.5-4.9); Potassium, Blood 5.9 mmol/L (3.5-5.5); Sodium, Blood 137 mmol/L (136-145)
[2022-07-20 12:22] LABS: CPK Creatine Kinase 584 U/L (39-308)
[2022-07-20 12:41] LABS: Albumin, Blood 2.1 g/dL (3.4-5.0); Anion Gap 36 mmol/L (6-16); Blood Urea Nitrogen 121 mg/dL (8-24); CO2, Blood 10 mmol/L (21-32); Calcium, Blood 7.8 mg/dL (8.5-10.1); Chloride, Blood 97 mmol/L (98-108); Creatinine, Blood 8.66 mg/dL (0.60-1.20); Glomerular Filtration Rate 6 (60-); Glucose, Blood 71 mg/dL (70-99); Phosphorus, Blood 12.2 mg/dL (2.5-4.9); Potassium, Blood 5.5 mmol/L (3.5-5.5); Sodium, Blood 143 mmol/L (136-145)
[2022-07-20 17:59] LABS: Albumin, Blood 2.3 g/dL (3.4-5.0); Anion Gap 40 mmol/L (6-16); Blood Urea Nitrogen 134 mg/dL (8-24); CO2, Blood 3 mmol/L (21-32); Calcium, Blood 8.3 mg/dL (8.5-10.1); Chloride, Blood 94 mmol/L (98-108); Creatinine, Blood 9.56 mg/dL (0.60-1.20); Glomerular Filtration Rate 5 (60-); Glucose, Blood 92 mg/dL (70-99); Potassium, Blood 5.7 mmol/L (3.5-5.5); Sodium, Blood 137 mmol/L (136-145)
[2022-07-20 18:06] LABS: Phosphorus, Blood 15.4 mg/dL (2.5-4.9)
--- NOTE | 2022-07-20 18:50 | NUR ---
RAIDAL AND PEDAL PULSES HAVE NOW BECOME MORE FAINT TO PALPATIOON
[2022-07-20 19:12] LABS: PCO2 Arterial 20.7 mmHg (35-45); PO2 Arterial 102 mmHg (80-100)
--- NOTE | 2022-07-20 19:31 | NUR ---
REPORT TO ELISABETH BROCK WHO WILL ASSUME PT CARE UNTIL PT TRANSFER TO ICU. UPON ARRIVAL PT ALERT, MOANING AND YELLING OUT. SKIN IS COOL, DRY, PALE AND INTACT. PT BEGAN WITH STRONG PEDAL AND RADIAL PULSES THAT BY 1830 HAD BECOME FAINT TO PALPATION. NO CHANGE IN MENTATION AT THIS TIME. PT RECIEVED 2 AMPULES OF NA BICARB, AND NA BICARB INFUSION RATE IS INCREASED TO 250ML/HR PER ORDERS. RT TO BEDSIDE TO ABG, THEY HAVE DIFFICULT TIME OBTAINING ACCESS FOR ABG. VITAL SIGNS ASSESSED MAP NOTED TO BE 67, SPO2 100% ON RA, RR 26. BIOMEDICAL ENGINEERING TECHNOLOGIST IS NOTIFIED OF CHANGES, DR MURRAY IS CALLED AGAIN, NEW ORDERS ARE OBTAINED FROM DR MURRAY. ABG RESULTS RETURNED WITH NUMEROUS CRITICAL RESULTS, BIOMEDICAL ENGINEERING TECHNOLOGIST AWARE, ICU IS CALLED FOR TRANSFER. THERE IS NO FAMILY LISTEN FOR CONTACT. PT IS A DNI.
--- NOTE | 2022-07-20 20:00 | NUR ---
ASSUME CARE PT ARRIVED FROM PCU OBTUNDED. AROUSABLE WITH CONSTANT PHYSICAL STIMULUS. ORIENTED TO SELF. INTERMITTENT FOLLOWING COMMANDS. GENERALIZED WEAKNESS. BP 70s/30s and 50s/30s. STARTING LEVO GTT. DR LAMBERT IN ROUTE TO INSERT TRIALYSIS.
[2022-07-20 20:52] LABS: Bun/Creatinine Ratio 14.5 (12.0-20.0); Calcium, Blood 7.7 mg/dL (8.5-10.1); Creatinine, Blood 9.42 mg/dL (0.60-1.20); Potassium, Blood 5.9 mmol/L (3.5-5.5)
[2022-07-20 21:00] LABS: Beta-hydroxybutyrate 116.7 mg/dL (0.2-2.8)
[2022-07-20 21:23] LABS: pH Blood Arterial <6.80 (7.35-7.45)
[2022-07-20 21:55] LABS: U Amphetamine Screen Not Detected; U Barbituate Screen Not Detected; U Benzodiazapine Screen Not Detected; U Buprenorphine Screen Not Detected; U Cannabinoids Screen Not Detected; U Cocaine Screen Not Detected; U Methadone Screen Not Detected; U Methamphetamine Screen Not Detected; U Opiates Screen Not Detected; U Oxycodone Screen Not Detected; U Phencyclidine Screen Not Detected; U Propoxyphene Screen Not Detected
--- NOTE | 2022-07-20 22:49 | NUR ---
NON-ROUTINE HOURS HD ORDERED BY DR MURRAY FOR PT WITH SERIAL INCREASE OF SERUM K+ WITH MOST RECENT VALUE 5.9. FEMORAL CVC PLACED BY DR LAMBERT IN ICU 14 THIS EVENING.
[2022-07-21 01:30] LABS: Test Name ETHYLENE GLYCOL; Test Name METHANOL
[2022-07-21 01:39] LABS: Salicylate 3.4 mg/dL (2.8-20.0)
[2022-07-21 02:17] LABS: Acetaminophen, Random <2.0 ug/mL (10.0-30.0)
[2022-07-21 04:45] LABS: BASOPHILS ABSOLUTE AUTO 0.06 K/mm3 (0.00-0.23); BASOPHILS PERCENT AUTO 0 % (0-2); EOSINOPHILS ABSOLUTE AUTO 0.01 K/mm3 (0.00-0.68); EOSINOPHILS PERCENT AUTO 0 % (0-6); Hematocrit 35.4 % (37.0-53.0); Hemoglobin 11.8 g/dL (13.5-17.5); IMMATURE GRAN ABSOLUTE AUTO 0.51 K/mm3 (0.00-0.10); IMMATURE GRAN PERCENT AUTO 3 % (0-1); LYMPHOCYTES ABSOLUTE AUTO 1.83 K/mm3 (0.84-5.20); LYMPHOCYTES PERCENT AUTO 10 % (21-46); MONOCYTES ABSOLUTE AUTO 1.09 K/mm3 (0.16-1.47); MONOCYTES PERCENT AUTO 6 % (4-13); Mean Corpuscular HGB 30.4 pg (26.0-34.0); Mean Corpuscular HGB Conc 33.3 g/dL (31.5-36.5); Mean Corpuscular Volume 91 fL (80-100); Mean Platelet Volume 11.1 fL (9.1-12.4); NEUTROPHILS ABSOLUTE AUTO 14.65 K/mm3 (1.96-9.15); NEUTROPHILS PERCENT AUTO 81 % (41-73); Platelet Count 181 K/mm3 (150-400); RDW Coefficient Variation 13.6 % (11.7-14.2); RDW Standard Deviation 45.4 fL (35.1-46.3); Red Blood Cell Count 3.88 M/mm3 (4.30-5.90); White Blood Cell Count 18.15 K/mm3 (4.00-11.30)
[2022-07-21 04:48] LABS: Salicylate 2.8 mg/dL (2.8-20.0)
[2022-07-21 04:51] LABS: Base Excess Venous -24.3 mmol/L; Bicarbonate Venous 8.6 mmol/L (24.0-30.0); PCO2 Venous 22.9 mmHg (38-42); pH Blood Venous 7.05 (7.34-7.37)
[2022-07-21 05:22] LABS: Albumin, Blood 2.2 g/dL (3.4-5.0); Blood Urea Nitrogen 71 mg/dL (8-24); Bun/Creatinine Ratio 12.8 (12.0-20.0); Calcium, Blood 7.4 mg/dL (8.5-10.1); Chloride, Blood 89 mmol/L (98-108); Creatinine, Blood 5.56 mg/dL (0.60-1.20); Glomerular Filtration Rate 10 (60-); Glucose, Blood 274 mg/dL (70-99); Potassium, Blood 4.2 mmol/L (3.5-5.5); Sodium, Blood 138 mmol/L (136-145)
[2022-07-21 05:23] LABS: Anion Gap 41 mmol/L (6-16); CO2, Blood 8 mmol/L (21-32)
--- NOTE | 2022-07-21 06:31 | NUR ---
END OF SHIFT SUMMARY DRIPS: LEVO 14 MCG/MIN VASOPRESSIN 0.04 ML/HR SODIUM BICARB 150 ML/HR LINES: ROBIN PIV. COY PG. LEFT FEM TRIALYSIS. NEURO: PT ARRIVED 1944 TO ICU. OBTUNDED REQUIRED CONSTANT NOXIOUS STIMULI TO BARELY ATTEND. AROUSABLE TO PAIN AND LOCALIZES. ORIENTED TO SELF. PUPILS 4MM AND SLUGGISH. INTERMITTENTLY FOLLOWS SIMPLE COMMANDS: SHOW ME TWO FINGERS AND WIGGLE TOES. BY MORNING PATIENT INTERMITTENTLY ALERT. ORIENTED TO SELF AND SOMETIMES PLACE. FOLLOWS MORE COMPLEX COMMANDS LIKE TESTING LIMB STRENGTH AGAINST RESISTANCE. GENERALIZED WEAKNESS, CAN MOVE LIMBS AGAINST GRAVITY BUT NOT RESISTANCE. CARDIAC: NSR. 80s-100s. MAPS MAINTAINED GREATER THAN 65 WITH GTTs. CAP REFILL >3 SECONDS IN BILATERAL FEET BUT < 3 SECONDS IN BUE. RESPIRATORY: RHONCHI IN BILATERAL UPPERS AND COARSE BILATERAL LOWERS ON ADMISSION. THROUGHOUT NIGHT PROGRESSIVE MORE RHONCHI IN UPPERS AND CRACKLES APPRECIATED IN BILATERAL LOWER LOBES. MD NOTIFIED AND BICARB GTT DECREASED. PT REMAINS ON ROOM AIR SATTING >92%. GI/: NO BOWEL MOVEMENT OVERNIGHT. ABDOMEN SOFT WITH HYPOACTIVE BOWEL SOUNDS. DAWSON IN PLACE. DRAINING TO GRAVITY WITH NO DEPENDENT LOOPS. DIALYZED. INTEGUMENTARY: EXCORITAION TO COCCYX AND PERIANAL ON ADMISSION TO ICU .CREAM AND MEPILEX IN PLACE. THROUGHOUT EVENING WAS IN CONSTANT COMMUNICATION WITH TERRI MIRELES AND PHARMACIST OVER PT CONDITION. POISON CONTROL WAS CONSULTED FOR CONCERN OF ETHYLENE GLYCOL. LAB WAS SENT OUT TO [place]. CAME BACK AT 0500 NEGATIVE FOR ETHYLENE GLYCOL, METHANOL GLYCOL, ISOPROPANOL. ACETONE CAME BACK <10. LABS ARE IMPROVING.
[2022-07-21 06:55] LABS: Salicylate 2.8 mg/dL (2.8-20.0)
[2022-07-21 07:13] LABS: Phosphorus, Blood 8.4 mg/dL (2.5-4.9)
--- NOTE | 2022-07-21 10:36 | NUR ---
UPDATE: This RN spoke with poison control and updated them on pt status.
--- NOTE | 2022-07-21 13:51 | NUR ---
UPDATE: Dr Ta called and notified of persistant hypotension with pressors maxed. He will come see pt.
--- NOTE | 2022-07-21 15:24 | NUR ---
Care Conference: Received a call from bedside RN Ana Maria. She reports pt's blood pressures are dropping, he is no longer responsive and is currently on max pressures. I did reach out to [facility] and speak to ELIZABETH Price. She thanked us for letting them know, as they think of him as "theirs" as she calls it. She is planning to send someone to sit with pt, as well as attempting to search for any family contacts in his file. Will cont to update [employer].
--- NOTE | 2022-07-21 15:27 | NUR ---
UPDATE: Dr Ta called and notified of agonal respirations and bradycardia. Telephone order for morphine.
--- NOTE | 2022-07-21 15:35 | NUR ---
TOD: pt without respirations or pulse. vehicle monitor technician shows asystole. TOD called at 1535.
--- NOTE | 2022-07-21 15:52 | NUR ---
Pt has passed; notified [facility] Staff. Condolences given. Pt is a , and likely has funds available via [place] for burial services.
[2022-07-22 21:06] LABS: HBSAG SCREEN Negative (Negative); HCV AB <0.1 (0.0-0.9); HEP A AB, IGM Negative (Negative); HEP B CORE AB, IGM Negative (Negative)
== END 2022-07-21 18:00 | DRG 682 ==
LOC: ER 19:49 → ERHOLD 07-20 02:46 → ICUW 07-20 02:46 → PCU 07-20 14:43 → ICUW 07-20 19:44
PROVIDERS: Hospitalist; Internal Medicine Critical Care Medicine; Internal Medicine Nephrology; Student in an Organized Health Care Education/Training Program; ADMIT Internal Medicine
PROC: 3E033XZ Introduction of Vasopressor into Peripheral Vein, Percutaneous Approach (ICD-10-PCS; principal; 2022-07-20)
PROC: 06HN33Z Insertion of Infusion Device into Left Femoral Vein, Percutaneous Approach (ICD-10-PCS; 2022-07-20)
DX: N17.9 Acute kidney failure, unspecified (principal); I21.A1 Myocardial infarction type 2; E87.1 Hypo-osmolality and hyponatremia; I13.0 Hypertensive heart and chronic kidney disease with heart failure and stage 1 through stage 4 chronic kidney disease, or unspecified chronic kidney disease; I50.22 Chronic systolic (congestive) heart failure; E87.21 Acute metabolic acidosis; R57.0 Cardiogenic shock; Z28.21 Immunization not carried out because of patient refusal; Z66 Do not resuscitate; Z51.5 Encounter for palliative care; Z20.822 Contact with and (suspected) exposure to COVID-19; J10.1 Influenza due to other identified influenza virus with other respiratory manifestations; I25.5 Ischemic cardiomyopathy; E78.5 Hyperlipidemia, unspecified; N18.9 Chronic kidney disease, unspecified; I25.10 Atherosclerotic heart disease of native coronary artery without angina pectoris; E11.22 Type 2 diabetes mellitus with diabetic chronic kidney disease; E87.5 Hyperkalemia; M19.90 Unspecified osteoarthritis, unspecified site; E11.40 Type 2 diabetes mellitus with diabetic neuropathy, unspecified; R33.9 Retention of urine, unspecified; E11.649 Type 2 diabetes mellitus with hypoglycemia without coma; E83.39 Other disorders of phosphorus metabolism; D63.1 Anemia in chronic kidney disease; I25.2 Old myocardial infarction; Z95.1 Presence of aortocoronary bypass graft; Z98.890 Other specified postprocedural states; Z88.8 Allergy status to other drugs, medicaments and biological substances; Z90.49 Acquired absence of other specified parts of digestive tract; Z87.891 Personal history of nicotine dependence; Z79.82 Long term (current) use of aspirin; Z79.84 Long term (current) use of oral hypoglycemic drugs; Z79.899 Other long term (current) drug therapy
CPT/HCPCS: 0241U; 31720; 36415; 36556; 36600; 51702; 71045; 76770; 80048; 80053; 80069; 80074; 81001; 82010; 82550; 82693; 82803; 82947; 83605; 83690; 83735; 83930; 84484; 84600; 85025; 87040; 87070; 87077; 87086; 87186; 87205; 93005; 93010; 94762; 96365-59; 96366-59; 96372-59; 96375-59; 96376-59; 99285-25; A9270; C1751; C1752; G0480; J0171; J0610; J1250; J1451; J1644; J1815; J2270; J2405; J2543; J3370; J3411; J3415; J7030; J7050; J7060; J7070; P9047